=== PATIENT | female | born 2005 | race Caucasian/White ===

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

== ENCOUNTER 2024-01-30 09:05 | Emergency (ER) | payer OTHER, SELFPAY ==
[2024-01-30 09:12] VITALS: BP 132/67; PULSE 75; RESP 18; TEMP 36.7; O2SAT 100
[2024-01-30 09:21] VITALS: BP 132/67; PULSE 75; RESP 18; TEMP 36.7; O2SAT 100
--- NOTE | 2024-01-30 09:37 | ED.GENADULT ---
HPI - General Adult General Chief complaint: Ear Stated complaint: Right Ear Problem Source: patient Mode of arrival: ambulatory Limitations: no limitations History of Present Illness HPI narrative: Patient presents for evaluation of right-sided ear pain. She indicates she has a cerumen impaction on that side. She noticed muffled hearing yesterday. She tried to clean the right ear canal using a Q-tip. She indicates her mother told her that the wax was pushed in further. She denies any drainage from the right ear or tinnitus. She tried to clean her ear this morning with hydrogen peroxide but symptoms persist. Related Data Home Medications Medication Instructions Recorded Confirmed omeprazole 40 mg capsule,delayed 40 mg PO DAILY 04/23/22 01/30/24 release bupropion HCl 150 mg 24 hr tablet, 150 mg PO DAILY 01/30/24 01/30/24 extended release drospirenone 3 mg-ethinyl 1 tablet PO DAILY 01/30/24 01/30/24 estradiol 0.02 mg tablet ergocalciferol (vitamin D2) 1,250 1,250 mcg PO WEEKLY 01/30/24 01/30/24 mcg (50,000 unit) capsule Allergies Allergy/AdvReac Type Severity Reaction Status Date / Time No Known Allergies Allergy Verified 01/30/24 09:18 Review of Systems Review of Systems: CONSTITUTIONAL: Denies fever, chills, or sweats. EYES: Denies visual changes, redness, or discharge. ENT: Reports suspected cerumen impaction on right. Reports muffled hearing on the right side. Denies rhinorrhea, congestion, or sore throat CARDIOVASCULAR: Denies chest pain, palpitations, or edema. RESPIRATORY: Denies cough or dyspnea. GASTROINTESTINAL: Denies abdominal pain, nausea, vomiting, or diarrhea. GENITOURINARY: Denies dysuria or hematuria. SKIN: Denies rash or itching. MUSCULOSKELETAL: Denies back pain, joint pain, or myalgia. NEUROLOGIC: Denies headache, numbness, dizziness, or weakness. PSYCHIATRIC: Denies anxiety or depression. [facility] Past Medical History Medical History GERD (gastroesophageal reflux disease) No significant past medical history Obesity Seasonal affective disorder Surgical History Surgical History No significant past surgical history Family History Family History Mother Family history non-contributory Social History Social History Smoking status: Never smoker Alcohol intake: never Substance use: never Living arrangements: with family Occupation/Education: unemployed Gender identity (if verbalized by the patient): Female Exam Narrative: GENERAL: Well-appearing, well-nourished, and in no acute distress. HEAD: Normocephalic, atraumatic. EYES: PERRLA and EOMI. ENT: Nares clear, no rhinorrhea or epistaxis. Mucous membranes moist. Oropharynx without tonsillar hypertrophy exudate or other lesions. Left tympanic membrane is pearly pinto with bony landmarks visualized. Unable to visualize right-sided tympanic membrane due to cerumen impaction NECK: Supple. No adenopathy or masses. No carotid bruits or JVD CHEST: Clear to auscultation. No respiratory distress. No wheezes rales or rhonchi HEART: Regular rate and rhythm. No murmur heard. Normal peripheral pulses. ABDOMEN: Soft, nontender, nondistended, normal active bowel sounds. EXTREMITIES: Normal range of motion. No edema. SKIN: Warm, dry, no rash. NEURO: No focal deficits. Alert and oriented x3. PSYCH: Normal mood and affect. Course Course Emergency Course: This is a 18-year-old female who presented for evaluation of muffled hearing on the right. She had a cerumen impaction. I irrigated the right ear with water and hydrogen peroxide. Cerumen was removed. She has a small amount of redness in the right ear canal. Will discharge with ofloxacin ear drops. Tympanic membrane intac
== END 2024-01-30 09:38 | disposition home or self-care (01) ==
PROVIDERS: Emergency Provider Nurse Practitioner
DX: H61.21 Impacted cerumen, right ear (principal); K21.9 Gastro-esophageal reflux disease without esophagitis; E66.9 Obesity, unspecified; Z68.35 Body mass index [BMI] 35.0-35.9, adult
CPT/HCPCS: 69209; 99213; G0463

== ENCOUNTER 2025-04-19 00:16 | Day surgery (SDC) | payer OTHER, SELFPAY ==
[2025-04-11 10:06] VITALS: BMI 36.1
--- NOTE | 2025-04-11 10:14 | PC.NURSE ---
Report to the Outpatient Waiting Room, entrance under the green pavilion located off [facility], at time _0730_ on date _[id number]_. Planned Procedure Time: _0930_. Time changes happen often and if your time is changed the preop area will call you the afternoon before. - You and your visitor will be asked to self-screen and do not enter if you have any COVID symptoms. Please call surgeon if you need to reschedule. - A mask is optional within the hospital at this time. Patients may have clear liquids (water, carbonated beverages, clear teas, apple juice) until 3 hours prior to surgery with a maximum of 20 ounces. - No food from midnight until time of surgery and no smoking, or chewing tobacco (or any form of nicotine). No chewing gum, candy or mints. Take only the following medications with a SIP of water on the morning of surgery: __Albuterol inhaler if needed. DO NOT STOP ANY OF YOUR OTHER PRESCRIPTION MEDICATIONS PRIOR TO SURGERY EXCEPT THE FOLLOWING Hold all vitamins and supplements for 3 days per anesthesiologist. Medications to discontinue per physician Date to take last dose Please no make-up, nail [place], hairspray, perfume, deodorant, or body powder the day of surgery. No jewelry (including any body piercings) or valuables the day of surgery, leave them at home. Please take a shower or bath the night before, or the morning of, surgery with an antibacterial soap. Wear comfortable, loose fitting clothing. - Jewelry must be removed prior to entering the operating room. Rings and piercings that are not removed may be cut off. - The hospital will not accept responsibility for valuables. - Please leave all valuables, including medications, at home the day of surgery. If you are going home after surgery, a licensed refuse driver must drive you home. - NO public transportation without another adult if you receive anesthesia. - We recommend that an adult stay with you for 24 hours following discharge. - We also recommend that you do not drive, make important decision, drink alcoholic beverages, or take any drugs that were not prescribed by your health care provider for at least 24 hours after your discharge time. Follow any additional instructions given to you from your surgeon. Telephone instructions given to __Ryea___and asked if any additional questions and then verbalized understanding. Patient advised to call surgeon office or pre surgery nurse liaison [phone] if any additional questions.
[2025-04-19] VITALS (12 sets, daily range): BP systolic 103–133; BP diastolic 59–87; PULSE 67–84; RESP 12–20; TEMP 36.4–36.6; O2SAT 86–100; BMI 37.4
--- OUTSIDE RECORDS SUMMARY | 2025-04-19 00:19 | XMS_ITS | Clinical Summary ---
Author Organization [facility] Address [address] [place] [address] Phone Care Team Providers Care Vessel Operator Name Role Phone Emily, Karla MOSS CNP Primary Care Provider [phone] Allergies No known active allergies Medications ondansetron (Zofran) 4 MG Tablet Take 1 Tablet by mouth every 8 hours as needed for Nausea - 1st line. 12 Tablet 03/26/2021 Active Social History Tobacco Use Types Packs/Day Years Used Date Smoking Tobacco: Never Smokeless Tobacco: Never Alcohol Use Standard Drinks/Week Comments Never 0 (1 standard drink = 0.6 oz pur e alcohol) Comments No Sex and Gender Information Value Date Recorded Sex Assigned at Not on file Legal Sex Female 10:57 PM CDT Gender Identity Not on file Sexual Orientation Not on file Last Filed Vital Signs Vital Sign Reading Time Taken Comments Blood Pressure 136/76 03/26/2021 8:35 PM CDT Pulse 100 03/26/2021 8:35 PM CDT Temperature 38.3 C (100.9 F) 03/26/2021 8:26 PM CDT Respiratory Rate 20 03/26/2021 8:16 PM CDT Oxygen Saturation 98% 03/26/2021 8:35 PM CDT Inhaled Oxygen Concentration - - Weight 86.2 kg (190 lb) 03/26/2021 7:00 PM CDT Height 157.5 cm (5' 2 ) 03/26/2021 7:00 PM CDT Body Mass Index 34.75 03/26/2021 7:00 PM CDT Plan of Treatment Health Maintenance Due Date Last Done Comments Hepatitis C Virus (HCV) Screening 2003 Meningococcal B Immunization (2 of 2 - Bexsero SCDM 2-dose series) 12/29/2021 06/28/2021 Influenza Immunization (#1) 07/31/202408/30, 09/12/2015, 12/02/2010, Additional history exists SARS-COV-2 Immunization ( season) 2024 Respiratory Syncytial Virus (RSV) Immunization (Adult) (1 - 1-dose 75+ series) 2078 Hepatitis B Immunization Completed 004, 2003, 2003, Additional history exists Pneumococcal Immunization Combined Aged Out 03/31/2005, 01/29/2004, 2003, Additional history exists No longer eligible based on patient's age to complete this topic Hepatitis A Immunization Discontinued 05/21/2006, 06/2005 Measles Mumps Rubella (MMR) Immunization Discontinued 06/22/2008, 06/27/2004 Polio (IPV) Immunization Discontinued 008, 01/29/2004, 2003, Additional history exists Varicella Immunization Discontinued 06/22/2008, 2003 DTaP/Tdap/Td Immunization Discontinued 2014, 06/22/2008, 03/31/2005, Additional history exists TdaP Immunization Completed 06/28/2015 Human Papillomavirus (HPV) Immunization Completed 06/16/2017, 01/13/2017, 06/28/2015 Meningococcal Immunization (ACWY) Completed 06/28/2021, 06/28/2015 Rotavirus Immunization Aged Out No lo nger eligible based on patient's age to complete this topic Insurance [employer]ID [employer] Care Teams Vessel Operator Relationship Specialty Start Date End Date Karla Diaz APRN, CHRISTOPHER [address] [place] [address] PCP - General Family Medicine 06/19/22
--- OUTSIDE RECORDS SUMMARY | 2025-04-19 00:19 | XMS_ITS | Data Portability ---
Author Organization [facility] [place] Address [address] [place] [address] Care Team Providers Care Trailer Park Manager Name Role Phone GRISELDA GONZALEZ Primary Care Provider Assessment No assessment recorded. Plan of Treatment Reminders Order Date Submit Date Provider Last Modified By Organization Details Last Modified Time Details Appointments SURG Diagnosti c Lap 2024 09:30A Pierre REYNOSO MD Not available Not available Not available Lab 17-hydrox yprogestDANIAL william, serum 2024 025 [facility] (Lab), [address] [place], [address], 03/21/2025 17:49:34 dhea-sulf ate, serum 2024 025 [facility] (Lab), [address] [place], [address], 03/21/2025 17:49:32 estradiol , serum 2024 025 [facility] (Lab), [address] [place], [address], 03/21/2025 17:49:31 FSH (follicle -stimulat ing hormone), serum 2024 025 [facility] (Lab), [address] [facility], [place], [address], 03/21/2025 17:49:33 HbA1c (hemoglob in A1c), blood 2024 025 [facility] (Lab), [address] , [place], [address], 03/21/2025 17:49:33 lh (luteiniz ing hormone), serum 2024 025 [facility] (Lab), [address] , [place], [address], 03/21/2025 17:49:33 progester one, serum 2024 025 [facility] (Lab), [address] , [place], [address], 03/21/2025 17:49:31 prolactin , serum 2024 025 [facility] (Lab), [address], [place], [address], 03/21/2025 17:49:32 shbg (sex hormone-b inding globulin) , serum 2024 025 [facility] (Lab), [address], [place], [address], 03/21/2025 17:49:32 TSH, serum or plasma 2024 025 [facility] (Lab), [address], [place], [address], 03/21/2025 17:49:31 testoster one free/test osterone total, ratio, serum 2024 025 [facility] (Lab), [address], [place], [address], 03/21/2025 17:49:33 urinalysi s, dipstick 2024 025 [email or web address] [place], [address], [address], [place], [address], 02/13/2025 15:12:28 test, urine 2024 025 [place], [address], [place], [address], 02/13/2025 15:13:59 Referral None recorded. Procedures None recorded. Surgeries laparosco py, diagnosti c (SURG) 2024 025 [id number] [facility] [place], [address], [place], [address], 03/14/2025 14:08:16 Imaging US, pelvis 2024 025 [email or web address] [place], [address], [place], [address], 02/20/2025 22:01:02 US, transvagi nal 2024 025 [email or web address] [place], [address], [place], [address], 02/20/2025 22:01:02 US, pelvis, complete 2024 025 [email or web address] [place], [address], [place], [address], 03/26/2025 11:40:37 Medication Orders None recorded. Patient TargetsNo targets recorded. Patient InstructionsNo instructions recorded. Reason for Referral None Reported. Results Created Date Observation Date Name Description Value Unit Range Abnormal Flag Note LastModifiedBy Organization Detail LastModifiedTime 02/14/2002/13/2025 [facility], HOMER bacterial vaginosis (bv), tma Negati ve negati ve Not Available [facility] (Lab) [address], [place], [address], 02/14/2025 14:58:06 02/14/2002/13/2025 WOMEN 'S HEALT H SWAB PLUS, HOMER aishwarya species, tma Negati ve negati ve Not Available [facility] (Lab) [address] [facility], [place], [address], 02/14/2025 14:58:06 02/14/20 25 02/13/2025 WOMEN 'S HEALT H SWAB PLUS, HOMER aishwarya glabrata, tma Negati ve negati ve Not Available [facility] (Lab) [address] [place], [address], 02/14/2025 14:58:06 02/14/20 25 02/13/2025 [facility]OMEN 'S HEALT H SWAB PLUS, HOMER trichomonas vaginalis, tma Negati ve negati ve Not Available [facility] (Lab) [address] [facility], [place], [address], 02/14/2025 14:58:06 02/14/20 25 02/13/2025 [facility] chlamydia trachomatis, PCR Negati ve negati ve Not Available [facility] (Lab) [address] [facility], [place], [address], 02/14/2025 14:58:06 02/14/20 25 02/13/2025 [facility] neisseria gonorrhoeae, PCR Negati ve negati ve Bacte rial vagin osis detec ts the follo wing bacte aniket assoc iated with bacte rial vagin osis (BV): Lacto bacil mike (L. gasse ri, L. crisp atus and L. jense ridge), Gardn erell a vagin nandini, and Atopo bium vagin ae. A singl e quali tativ e resul t is repor rosario base on instr ument softw are to deter mine BV posit alana or negat alana statu s. The R[facility]i [facility] speci es group tests for C. albic ans, C. tropi calis , C. parap ailyn is, C. dubli niens is. Testi ng is perfo rmed using the Trans cript ion Media rosario Ampli ficat ion metho d. Tests for Roxi da glabr mehran, Trich omona s vagin nandini, Chlam ydia trach omati s, and Neiss eria gonor tan e are also inclu ded in this panel . Not Available [facility] (Lab) [address] [facility], [place], [address], 02/14/2025 14:58:06 02/14/20 25 02/13/2025 CULTU RE: URINE result report SEE RESULT S BELOW Test: Cultu re: Urine Speci men Sourc e: Urine - Clean Catch Speci men Type: Urine Speci men Date: 2024 1458 Resul t Date: 2024 2103 Resul t Statu s: Final resul t Abnor mal: No Resul ting Lab: [facility] [address] [facility] [address] Tel: CULTU RE ----- ----- ----- --- No growt h in 1 day (dete ction level of 10,00 0 colon ies / ml.) Not Available [facility] (Lab) [address] [facility], [place], [address], 02/14/2025 22:07:29 02/14/20 25 02/13/2025 pregn tonia test, urine HCG negati ve Not Available [place] [address], [place], [address], 02/13/2025 15:12:57 02/14/20 25 02/13/2025 urina lysis , dipst ick Leukocytes neg Not Available [facility] [address], [place], [address], 02/13/2025 15:11:17 02/14/20 25 02/13/2025 urina lysis , dipst ick Nitrite neg Not Available [place] [address], [place], [address], 02/13/2025 15:11:17 02/14/20 25 02/13/2025 urina lysis , dipst ick Urobilinogen neg Not Available [facility] [address], [place], [address], 02/13/2025 15:11:17 02/14/20 25 02/13/2025 urina lysis , dipst ick Protein pos Not Available [place] [address], [place], [address], 02/13/2025 15:11:17 02/14/20 25 02/13/2025 urina lysis , dipst ick pH 5 Not Available [place] [address], [place], [address], 02/13/2025 15:11:17 02/14/20 25 02/13/2025 urina lysis , dipst ick Specific [place] 1.015 Not Available [facility] [address], [place], [address], 02/13/2025 15:11:17 02/14/20 25 02/13/2025 urina lysis , dipst ick Bilirubin neg Not Available [facility] [address], [place], [address], 02/13/2025 15:11:17 02/14/20 25 02/13/2025 urina lysis , dipst ick Glucose neg Not Available [place] [address], [place], [address], 02/13/2025 15:11:17 02/14/20 25 02/13/2025 urina lysis , dipst ick Appearance clear Not Available [facility] [address], [place], [address], 02/13/2025 15:11:17 02/14/20 25 02/13/2025 urina lysis , dipst ick Color yellow Not Available [place] [address], [place], [address], 02/13/2025 15:11:17 03/06/20 25 03/06/2025 TSH, REFLE X FREE T4 TSH 0.87 uIU/m L 0.30-5 .33 Not Available [facility] (Lab) [address] [place], [address], 03/21/2025 17:49:31 03/06/20 25 03/06/2025 ESTRA DIOL estradiol 340.0 pg/mL This assay was perfo rmed using [employer] ratio n reage nts and test kits. Value s obtai james with other assay metho ds or kits canno t be used inter [facility] . Femal e Estra diol Range s: Folli cular phase 12.4- 233 pg/mL Ovula tion phase 41.0- 398 pg/mL Lutea l phase 22.3- 341 pg/mL Postm enopa usal <5-13 8 pg/mL Healt hy Pregn ant Women 1st Trime ster 154-3 243 pg/mL 2nd Trime ster 1561- 04900 pg/mL 3rd Trime ster 8525- >3000 0 pg/mL Not Available [facility] (Lab) [address] [place], [address], 03/21/2025 17:49:31 03/06/20 25 03/06/2025 PROGE STERO NE progesterone 0.58 NG/mL This assay was perfo rmed using [employer] ratio n reage nts and test kits. Value s obtai james with other assay metho ds or kits canno t be used inter [facility] eay . Femal e Proge stero ne Range s: Folli cular phase 0.06- 0.89 ng/mL Ovula tion phase 0.12- 12.00 ng/mL Lutea l phase 1.83- 23.90 ng/mL Postm enopa usal <0.05 -0.13 ng/mL Healt hy Pregn ant Women 1st Trime ster 11.0- 44.30 2nd Trime ster 25.40 -83.3 0 3rd Trime ster 58.70 -214. 00 Not Available [facility] (Lab) [address] [facility], [place], [address], 03/21/2025 17:49:31 03/06/20 25 03/06/2025 PROLA CTIN prolactin, total 14.90 NG/mL 4.79-2 3.30 This assay was perfo rmed using [employer] ratio n reage nts and test kits. Value s obtai james with other assay metho ds or kits canno t be used inter [facility] . Not Available [facility] (Lab) [address] [facility], [place], [address], 03/21/2025 17:49:32 03/06/20 25 03/06/2025 HUMAN SEX HORMO NE ROCKY NG GLOBU GEORGE sex hormone binding globulin 63.1 nmole s/L 18.2-1 35.5 Not Available [facility] (Lab) [address] [facility], [place], [address], 03/21/2025 17:49:32 03/06/20 25 03/06/2025 DHEA SULFA TE DHEA-sulfate 160 ug/dL Femal e Range s Age(y ) Range (ug/d L) 10-15 34-28 0 15-20 65-36 8 20-25 148-4 07 25-35 99-34 0 35-45 61-33 7 45-55 35-25 6 55-65 19-20 5 65-75 9-246 > 75 12-15 4 Not Available [facility] (Lab) [address] [facility], [place], [address], 03/21/2025 17:49:32 03/06/20 25 03/06/2025 LH (LUTE NIZIN G HORMO NE) LH 38.9 mIU/m L This assay was perfo rmed using [employer] ratio n reage nts and test kits. Value s obtai james with other assay metho ds or kits canno t be used inter [facility] e[facility] . Femal es Mid-F ollic ular: 2.4-1 2.6 mIU/m L Mid-C ycle: 14.0- 95.6 mIU/m L Mid-L uteal : 1.0-1 1.4 mIU/m L Postm enopa use: 7.7-5 8.5 mIU/m L Not Available [facility] (Lab) [address], [place], [address], 03/21/2025 17:49:33 03/06/20 25 03/06/2025 FSH FSH 11.6 mIU/m L This assay was perfo rmed using [employer] ratio n reage nts and test kits. Value s obtai james with other assay metho ds or kits canno t be used inter [facility] eably . Femal es Folli cular : 3.5-1 2.5 mIU/m L Ovula tion: 4.7-2 1.5 mIU/m L Lutea l: 1.7-7 .7 mIU/m L Postm enopa use: 25.8- 134.8 mIU/m L Not Available [facility] (Lab) [address] [facility], [place], [address], 03/21/2025 17:49:33 03/06/20 25 03/06/2025 HEMOG LOBIN A1C hemoglobin A1C 5.0 % 4.0-5. 6 The Ameri can Diabe chaz Assoc iatio n recom mends that a prima ry goal of thera py mahesh guevara be a HBA1C of < 7% and that physi cians shoul d reeva luate the treat ment regim en in patie nts with HBA1C value s consi stent ly > 8%. <5.7% Yolande l 5.7 - 6.4% Incre ased risk for diabe chaz >=6.5 % Diagn ostic of diabe chaz <7.0% Goal of thera py >8.0% Actio n sugge sted Not Available [facility] (Lab) [address], [place], [address], 03/21/2025 17:49:33 03/06/20 25 03/06/2025 TESTO STERO NE, FREE( DIALY SIS) AND TOTAL (LC/M S/MS) testosterone , total 62 NG/dL 2-45 high For addit ional sameer pillai e refer to http: //christy moore.que stdia gnost ics.c om/fa q/ Total Testo stero neLCM SMSFA Q165 (This link is being provi ded for infor matjosseline nal/ educa kimi l purpo ses only. ) This test was devel oped and its fifi tical perfo rmanc e lucho cteri stics have been deter mined by [employer] ostic s [place]enny [place], [place]. It has not been clear ed or appro kenzie by the U.S. Food and Drug Admin istra tion. This assay has been valid ated pursu ant to the CLIA regul ation s and is used for clini verna purpo ses. Not Available [facility] (Lab) [address], [place], [address], 03/21/2025 17:49:33 03/06/2003/06/2025 TESTO STERO NE, FREE( DIALY SIS) AND TOTAL (LC/M S/MS) testosterone , free 5.5 pg/mL 0.1-6. 4 This test was devel oped and its fifi tical perfo rmanc e lucho cteri stics have been deter mined by [employer] [facility]stic [facility] [place] [place]. It has not been clear ed or appro kenzie by the U.S. Food and Drug Admin istra tion. This assay has been valid ated pursu ant to the CLIA regul ation s and is used for clini verna purpo ses. Perfo rming Organ izati on [facility]inny moore: Site ID: [id number] Name: [employer] padmini s Renny ls Insti kelsie Addre ss: [id number] [facility] [employer] [place], [place] Direc tor: Isabelle Serrano MD PhD Not Available [facility] (Lab) [address], [place], [address], 03/21/2025 17:49:33 03/06/20 25 03/06/2025 17-OH PROGE STERO NE 17-hydroxypr ogesterone, lc/MS/MS 212 NG/dL Adult Femal e Refer ence Range s for 17-Hy droxy proge stero ne: Pre-M enopa usal Mid Folli cular : 23-10 2 ng/dL Pre-M enopa usal Surge : 67-34 9 ng/dL Pre-M enopa usal Mid Lutea l: 139-4 31 ng/dL Postm enopa usal Phase : < or = 45 ng/dL Pregn tonia: First Trime ster: 78-45 7 ng/dL Secon d Trime ster: 90-35 7 ng/dL Third Trime ster: 144-5 78 ng/dL This test was devel oped and its fifi tical perfo rmanc e lucho cteri stics have been deter mined by [employer] ostic s. It has not been clear ed or appro kenzie by the FDA. This assay has been valid ated pursu ant to the CLIA regul ation s and is used for clini verna purpo ses. Perfo rming Organ izati on Infor matio n: Site ID: [id number] Name: [employer] ostrod s/Hermilo herring [facility] , Addre ss: [id number] [facility] [place] [address] Direc tor: Jocelyne pollack MD,Ph D,THOMAS Not Available [facility] (Lab) [address], [place], [address], 03/21/2025 17:49:34 02/21/20 25 02/20/2025 US, pelvi s No observ ation record ed. [email or web address] [place] [address], [place], [address], 02/20/2025 16:34:20 02/21/20 25 02/20/2025 US, trans vagin al No observ ation record ed. [email or web address] [place] [address], [place], [address], 02/20/2025 16:34:32 02/21/20 25 02/20/2025 US, pelvi s No observ ation record ed. LAYLA Ericka [address], [place], [address], 02/21/2025 10:33:32 Result Notes None recorded. Procedures Surgical History Date Name Laterality Status Provider Name and Address Organization Details Recorded Time 4 Date of Last Pap Smear completed [facility] 02/13/2025 14:34:34 3 section completed [facility] 02/13/2025 14:43:44 Imaging Results Imaging Date Name Status LastModified by Organization Details LastModified Time 02/20/2025 US, pelvis completed [email or web address] [place] [address], [place], [address], 02/20/2025 16:34:20 02/20/2025 US, transvaginal completed [email or web address] [address], [place], [address], 02/20/2025 16:34:32 02/20/2025 US, pelvis completed LAYLA Ericka [address], [place], [address], 02/21/2025 10:33:32 Procedure Notes None recorded. Medical Equipment None Reported. Allergies No known drug allergies Medications Name Sig Start Date Stop Date Status Note LastModified by Organization Details LastModified Time albuterol sulfate HFA 90 mcg/actuati on aerosol inhaler INHALE 2 PUFFS BY MOUTH EVERY 4 HOURS NEEDED FOR WHEEZING active Not Available Not Available No t Available drospirenon e 3 mg-ethinyl estradiol 0.02 mg tablet TAKE 1 TABLET BY MOUTH EVERY DAY 03/06 completed Not Available Not Available Not Available Vitals Date Recorded Body height Body mass index (BMI) Body weight Systolic blood pressure Diastolic blood pressure Provider Name and Address Organization Details Last Updated DateTime 02/13/2025 157.48 cm 35.5 kg/m2 02366.92 g 101 mm[Hg] 67 mm[Hg] JHONATAN Duarte [facility] 14:39:34 Date Recorded Body height Body mass index (BMI) Body weight Systolic blood pressure Diastolic blood pressure Provider Name and Address Organization Details Last Updated DateTime 03/06/2025 157.48 cm 36.4 kg/m2 21112.88 g 138 mm[Hg] 79 mm[Hg] Mary Grace Anthony [facility] 17:20:10 Social History Question Answer Notes LastModified by Organizat ion Details LastModified Time Tobacco Smoking Status Never Smoker JHONATAN Duarte [facility] 02/13/2025 14:30:48 Do You Have An Advance Directive? No [email or web address] Information not available 02/13/2025 What Is Your Level Of Caffeine Consumption? None [email or web address] Information not available 02/13/2025 In The 14 Days Before Symptom Onset, Have You Had Close Contact With A Laboratory-confi rmed COVID-19 While That Case Was Ill? No [email or web address] Information not available 02/13/2025 Have You Been To An Area Known To Be High Risk For COVID-19? No Information not available 02/13/2025 Are You Deaf Or Do You Have Serious Difficulty Hearing? No Information not available 02/13/2025 What Type Of Diet Are You Following? REGULAR [email or web address] Information not available 02/13/2025 What Is The Highest Grade Or Level Of School You Have Completed Or The Highest Degree You Have Received? [id number] [email or web address] Information not available 02/13/2025 Are There Any Guns Present In Your Home? No Information not available 02/13/2025 Are You Sexually Active? Yes [email or web address] Information not available 02/13/2025 Do You Have Smoke And Carbon Monoxide Detectors In Your Home? Yes [email or web address] Information not available 02/13/2025 Do You Use Sunscreen Routinely? Yes [email or web address] Information not available 02/13/2025 Has Tobacco Cessation Counseling Been Provided? No [email or web address] Information not available 02/13/2025 Do You Have Difficulty Walking Or Climbing Stairs? No Information not available 02/13/2025 Sex: Unknown Functional Status Question Answer Note LastModified by Organizat ion Details LastModified Time Do you or have you ever used any other forms of tobacco or nicotine? No [email or web address] Information not available 02/13/2025 What is your level of alcohol consumption? None [email or web address] Information not available 02/13/2025 Are you able to walk? [email or web address] Information not available 02/13/2025 Do you have difficulty dressing or bathing? Yes [email or web address] Information not available 02/13/2025 What is your exercise level? Occasional Information not available 02/13/2025 Mental Status Question Answer Note LastModified by Organization D etails LastModified Time Do you feel stressed (tense, restless, nervous, or anxious, or unable to sleep at night)? [id number] [email or web address] Information not available 02/13/2025 Family History Relationship Description Onset Age of this Age Resolved Age Notes LastModified by Organization Details LastModified Time Mother Anemia [email or web address] Not available 02/13/2025 14:44:49 Mother Hypercholest erolemia [email or web address] Not available 2024 14:45:07 Mother Hypertensive disorder [email or web address] Not available 2024 14:45:50 Mother Cyst of ovary Not available 2024 16:27:47 Mother Thyroiditis [email or web address] Not availa ble 03/06/2025 16:27:47 Mother Polycystic ovary [email or web address] Not available 2024 16:27:47 Maternal Grandfather Hypercholest erolemia [email or web address] Not available 2024 14:45:22 Maternal Grandfather Hypertensive disorder [email or web address] Not available 2024 14:45:55 Maternal Grandfather Diabetes mellitus [email or web address] Not available 2024 14:48:14 Maternal Grandmother Hypercholest erolemia Not available 2024 14:45:26 Maternal Grandmother Hypertensive disorder [email or web address] Not available 2024 14:45:59 Maternal Grandmother Cyst of ovary Not available 2024 16:27:47 Maternal Grandmother Thyroiditis [email or web address] Not available 0 03/06/2025 16:27:47 Maternal Grandmother Heart disease [email or web address] Not available 2024 14:48:03 Maternal Grandmother Diabetes mellitus [email or web address] Not available 2024 14:48:20 Maternal Grandmother Polycystic ovary [email or web address] Not available 2024 16:27:47 Brother Asthma [email or web address] Not available 02/13/2025 14:49:41 Maternal Aunt Cyst of ovary [email or web address] Not available 2024 16:27:47 Maternal Aunt Polycystic ovary [email or web address] Not available 2024 16:27:47 Maternal Aunt Thyroiditis [email or web address] Not available 03/06/2025 16:27:47 Medical History Condition Response Allergies (Food, seasonal, environmental ) N Other N Breast Cancer N Drug/Latex Allergies/Reactions N Blood Transfusion N Lung Disease N Dermatologic Disorders N Defects or Inherited Disease N Breast Problem N Gestational Diabetes N Hematologic disorders N Anesthesia Complications N History of STI N Deep Vein Thrombosis N Polycystic ovary syndrome N Anxiety Disorder N Autoimmune disease N Arthritis N Infertility N Polyps N Acid Reflux (GERD) N History of abnormal pap N Cancer N Stroke N Varicosities N Neurologic/Epilepsy N Endometriosis N High Cholesterol N Headaches N Fibromyalgia N Kidney Disease N Heart Problems N Kidney or Bladder Problems N Thyroid Problems N GI Problems N Eating Disorder N Anemia N Art (IVF or FET) N Psychiatric Illness N Ovarian Cancer N Diabetes N Pulmonary (TB, Asthma) N Hepatitis/Liver Disease N No Past Medical History N Eczema N Urinary Tract Infection N Abuse/Domestic Violence N Asthma N Trauma/Violence N Depression/ depression N Heart Disease N Pre-Eclampsia N Hypertension N Osteoporosis N Thrombophilias N Gynecological History Statement/Question Response Date of Last Mammogram Flow Moderate Date of LMP 02/15/2025 On BCP's at Conception? N Was last menstrual period normal Y STIs/STDs N HPV Vaccine Y Duration of Flow (days) 4 Current Control Method None Age at First Child 16 Are cycles usually normal Y Date of Last Colonoscopy Frequency of Cycle (Q days) 28 Sexually Active? Y Menses Monthly Y Date of DEXA bone scan Age of first menstrual cycle 10 Date of Last Pap Smear 09/05/2024 Sexual Problems? LMP Definite Obstetrics History GPAL:G 1 P 1 0 0 1 Type Value Full Term 1 Living 1 Total 1 Past Encounters Encounter ID Performer Location Encounter Start Date Encounter Closed Date Diagnosis/Indication Diagnosis SNOMED-CT Code Diagnosis ICD10 Code Diagnosis Note [id number] MAYNOR Carroll [place] [address] [address] 02/13/2025 14:07:12 02/13/2025 16:19:48 Urinary symptoms 922025186 R39.9 Screening procedure 2012 5006 Z13.9 Pain in pelvis 54854642 R10.2 This patient is a 19 -year-old female with pelvic pain. We have agreed to complete the evaluation with pelvic ultrasound . The patient will return after the pelvic ultrasound to discuss those findings and to develop a treatment plan. A comprehens alana history and physical exam was performed today. We spent over 25 minutes face-to-fa ce. The patient was given precaution s. She will contact clinic if pelvic pain increases in frequency or intensity. Also notify clinic of any new symptoms associated with pelvic pain. She does not appear to have an acute pelvic infection today, but was asked to contact us Immediatel y with nausea, vomiting, fever, chills. Detailed health hx obtained and reviewed todaydiscu ssed chronic pelvic pain and possible endometrio sis based on patient hx, recommende d updated pelvic u/s and MD u/s f/uvaginit is panel sentgc/ct/ trich testing sent per pt requestUA/ cx doneUPT (-) Vaginal odor [id number] N 89.8 Venereal d isease screening [id number] Z11.3 [id number] Deshawn Reynoso MD [place] [address] [address] [address] 02/20/2025 15:54:52 02/20/2025 16:47:14 Pain in pelvis [id number] R10.2 [id number] Deshawn Reynoso MD [place] [address] [address] 03/06/2025 16:27:43 03/07/2025 15:15:43 Polycystic ovary syndrome [id number] E28.2 Pain in pelvis [id number] R10.2 This patient is a 19-year-ol d female with longstandi ng pelvic pain. She has failed medical treatments and would like a diagnostic laparoscop y. She would like more informatio n and possibly treatment with the surgery. The patient understand s the procedure. The procedure was described to the patient in great detail. the patient also understand s the risks. The risks were also explained in detail. She understand s that injuries May occur during surgery. She understand s these injuries can result in hospitaliz ation, more surgery, and severe illness. She understand s there is risk of hemorrhage and infection. we talked about polycystic ovarian syndrome in detail. Talked about the normal menstrual cycle. We talked about the hormonal irregulari ty at the center of polycystic ovarian syndrome. We talked about her ultrasound results. I showed her images from her ultrasound results. She has polycystic appearing ovaries. We are going to withhold treatment at this time. She is considerin g . We spent over 30 minutes on this patient's care in total, discussed to complex topics in detail. Health Concerns Section Related Observation LastModified by Organization Detai ls LastModified Time None Recorded Concern Status LastModified by Organization Details LastModified Time None Recorded Advance Directives Directive N: Payers Encounter Date Sequence Insurance Name Policy Number Policy Shaver Covered Member ID Shaver Member ID Guarantor Name 02/13/2025 1 [employer] (MEDICAID REPLACEMENT - HMO) Ryea Greeling [id number] Ryea Greeling 02/20/2025 1 [employer] (MEDICAID REPLACEMENT - HMO) Ryea Greeling [id number] Ryea Greeling 03/06/2025 1 [employer] (MEDICAID REPLACEMENT - HMO) Ryea Greeling [id number] Ryea Greeling Notes Date Note Type Note Provider Name and Address Organization Details Recorded Time 02/13/2025 text/html 19yo (h/ o primary c/s 01/2023)presents for evaluation of pelvic painsymptoms present for the past 2-3 yrspain is described as lower pelvic pain, ache/cramping sensation, feels daily. Worse on her periods.SA with steady male partners, condoms/withdrawal for [facility] is painfuloften has constipationat times has discomfort with urinationvaginal odor present on and off Pap done 10 [id number]|2025-04-19 11:30:00|2025-04-19 11:30:00|P.OP_ITS|[facility]EN|Health Information Management|[id number]|"Procedure Note - Detailed Date of Procedure 04/19/25 Pre-op Diagnosis pelvic pain Post-op Diagnosis Same (Endometriosis, adhesion) Procedure Performed Diagnostic laparoscopy, adhesiolysis-30 minutes, resection of endometriosis Surgeon Deshawn Reynoso MD Anesthesia General Indications Pelvic pain Findings Inflammation/endometriosis in the bilateral pelvic sidewalls, vascularity. Adhesions between the uterus and the anterior pelvis. Description of Procedure The patient was taken to the operating room. She was prepped and draped in the dorsal lithotomy position after induction general anesthesia. A 5 mm incision was made with a scalpel on the abdominal skin in the left upper quadrant of the abdomen. A 5 mm trocar was inserted into the intra-abdominal cavity under direct visualization the scope. In the same fashion a 5 mm left lower quadrant trocar was inserted and a 5 mm infraumbilical trocar was inserted. 30 minutes of adhesiolysis was performed using sharp and blunt dissection and cautery. This was performed between the uterus and the anterior pelvis. Resection of endometriosis was performed. Bilaterally the pelvic sidewall peritoneum was removed. The ureters were dissected intact. To perform resection of an endometriosis the ovaries were suspended using a [place] needle/suture Passer to place a suture through the abdominal wall through the ovary to suspended towards the anterior abdominal wall. DAGOBERTO manipulator was also placed. This was done using a speculum and tenaculum. The pelvis was irrigated. The pneumoperitoneum was reduced. The trocars were removed. Skin was closed with subcuticular 4 micro. The patient's incisions were covered with Dermabond. She was taken recovery room in stable condition. Sponge lap and needle counts were correct x2. Complications No immediate complications Condition Stable Disposition Same day "
--- OUTSIDE RECORDS SUMMARY | 2025-04-19 00:19 | XMS_ITS | Clinical Summary ---
Author Organization [address] Address [address] [place] [id number] Care Team Providers Care Supervisor Travel Information Center Name Role Phone Vinicio Lowery MD Unavailable [phone] Juan Baugh MD Primary Care Provider [phone] Allergies No known active allergies Medications albuterol HFA (PROVENTIL HFA,VENTOLIN HFA,PROAIR HFA) 90 mcg/actuation inhaler Inhale 2 puffs every 4 (four) hours as needed for wheezing 1 each 2 4 Active ondansetron ODT (ZOFRAN-ODT) 4 mg disintegrating tabletIndications:N ausea and vomiting, unspecified vomiting type Take 1 tablet (4 mg total) by mouth every 8 (eight) hours as needed for nausea or vomiting 20 tablet 5 Active dulaglutide (TRULICITY) 0.75 mg/0.5 mL pen injectorIndications :PCOS (polycystic ovarian syndrome) Inject 0.5 mL (0.75 mg total) under the skin every 7 days 6 mL 5 06/05/20 25 Active Active Problems Problem Noted Date Diagnosed Date Mixed hyperlipidemia 01/03/2025 Assessment & Plan (01/03/2025 10:26 AM COMMERCIAL FINANCE ANALYST): Lab Results Component Value Date CHOL 134 01/01/2024 Lab Results Component Value Date HDL 37 (L) 01/01/2024 Lab Results Component Value Date LDLCALC 66 01/01/2024 Lab Results Component Value Date TRIG 153 (H) 01/01/2024 No results found for: POCCHDLR No results found for: POCNONHDL No results found for: POCCHLPL Class 1 obesity due to exces s calories without serious comorbidity with body mass index (BMI) of 33.0 to 33.9 in adult 12/30/2023 Assessment & Plan (01/03/2025 10:13 AM COMMERCIAL FINANCE ANALYST): Wt Readings from Last 3 Encounters: 01/03/25 84.2 kg (185 lb 11.2 oz) 12/22/24 86.2 kg (190 lb) 10/19/24 86.1 kg (189 lb 14.4 oz) BMI Readings from Last 3 Encounters: 01/03/25 33.96 kg/m 12/22/24 34.75 kg/m 10/19/24 34.72 kg/m Not at goal of bmi <30 Continue diet and exercise BMI Follow-up includes: nutrition counseling and exercise counseling. No improvement with phentermine and topamax Obesity is causing significant morbidity, including issues fatigue, causing worsening depression, worsening back pain, as well as right sided hip pain which she didn't have this previous to gaining weight Assessment & Plan (10/19/2024 2:49 PM COMMERCIAL FINANCE ANALYST): Wt Readings from Last 3 Encounters: 10/19/24 86.1 kg (189 lb 14.4 oz) 05/18/24 82.6 kg (182 lb) 02/11/24 92.8 kg (204 lb 9.6 oz) BMI Readings from Last 3 Encounters: 10/19/24 34.72 kg/m 05/18/24 33.28 kg/m 02/11/24 37.41 kg/m Not at goal of bmi <30 Continue diet and exercise BMI Follow-up includes: nutrition counseling and exercise counseling. No improvement with phentermine and topamax Obesity is causing significant morbidity, including issues fatigue, causing worsening depression, worsening back pain, as well as right sided hip pain which she didn't have this previous to gaining weight Assessment & Plan (05/18/2024 7:48 AM CDT): Wt Readings from Last 3 Encounters: 05/18/24 82.6 kg (182 lb) 02/11/24 92.8 kg (204 lb 9.6 oz) 12/30/23 95 kg (209 lb 8 oz) BMI Readings from Last 3 Encounters: 05/18/24 33.28 kg/m 02/11/24 37.41 kg/m 12/30/23 38.31 kg/m Not at goal of bmi <30 Continue diet and exercise BMI Follow-up includes: nutrition counseling and exercise counseling. Not at goal at this time C/w phetnermien 30 mg and topimarate 25 mg bid Assessment & Plan (02/11/2024 11:50 AM CDT): Wt Readings from Last 3 Encounters: 02/11/24 92.8 kg (204 lb 9.6 oz) 12/30/23 95 kg (209 lb 8 oz) 03/08/23 88.5 kg (195 lb) (97%, Z= 1.87)* * Growth percentiles are based on CDC (Girls, 2-20 Years) data. BMI Readings from Last 3 Encounters: 02/11/24 37.41 kg/m 12/30/23 38.31 kg/m 03/08/23 35.67 kg/m (97%, Z= 1.89)* * Growth percentiles are based on CDC (Girls, 2-20 Years) data. Not at goal of bmi <30 Continue diet and exercise BMI Follow-up includes: nutrition counseling and exercise counseling. Not at goal at this time Some improvement Start phetnermien 30 mg every day x 3 months with topimarate 25 mg bid Assessment & Plan (12/30/2023 11:26 AM COMMERCIAL FINANCE ANALYST): Wt Readings from Last 3 Encounters: 12/30/23 95 kg (209 lb 8 oz) 03/08/23 88.5 kg (195 lb) (97%, Z= 1.87)* 02/18/23 103.4 kg (228 lb) (99%, Z= 2.30)* * Growth percentiles are based on CDC (Girls, 2-20 Years) data. BMI Readings from Last 3 Encounters: 12/30/23 38.31 kg/m 03/08/23 35.67 kg/m (97%, Z= 1.89)* 02/18/23 41.70 kg/m (>99%, Z= 2.36)* * Growth percentiles are based on CDC (Girls, 2-20 Years) data. Not at goal of bmi <30 Continue diet and exercise BMI Follow-up includes: nutrition counseling and exercise counseling. Annual physical exam 12/30/2023 Assessment & Plan (01/03/2025 10:27 AM COMMERCIAL FINANCE ANALYST): Discussed lifestyle modifications, diet and exercise. Routine blood work ordered/reviewed today. Yearly vision and dental examinations. Assessment & Plan (12/30/2023 11:35 AM COMMERCIAL FINANCE ANALYST): Discussed lifestyle modifications, diet and exercise. Routine blood work ordered/reviewed today. Yearly vision and dental examinations. Anxiety 12/30/2023 Assessment & Plan (10/19/2024 2:51 PM COMMERCIAL FINANCE ANALYST): Has been worsening due to her weight gain Assessment & Plan (05/18/2024 7:48 AM CDT): Significant improvemen Continue wellbutrin 150 mg xl Assessment & Plan (02/11/2024 11:45 AM CDT): Significant improvement since starting wellbutrin Continue wellbutrin 150 mg xl Assessment & Plan (12/30/2023 11:34 AM COMMERCIAL FINANCE ANALYST): New problem Discussed different treatment options Will start wellbutrin as pt also wants to try and lose weight Start wellbutrin 150 mg xl every day and rtc in [facility] 2-3 months to see how she is doing Dysthymia 12/30/2023 Assessment & Plan (12/30/2023 11:35 AM COMMERCIAL FINANCE ANALYST): Not at goal at this time Will start wellbturin Has never been on treatment before Resolved Problems Problem Noted Date Diagnosed Date Resolved Date Encounter for elective induction of labor 02/18/2023 12/30/2023 Post-term , 40-42 weeks of gestation 02/19/20 23 12/30/2023 Overview (02/19/2023): Added automatically from request for surgery [id number] Encounters Date Type Department Care Team Description 03/13/2025 Telephone [facility] Primary Care at [address] [place] [address] Juan Baugh MD 03/07/2025 Orders Only [facility] Primary Care at [address] [place] [address] Juan Baugh MD PCOS (polycystic ovarian syndrome) (Primary Dx) 03/02/2025 Telephone [facility] [address] [facility] 3rd Floor [address] [place] [address] Roland Finch from Last 3 Months Immunizations Immunization Administration Dates Next Due DTaP 06/22/2008, 5,01/29/2004,11/14,2003 DTaP / Hep B / IPV 01/29/2004,2003, 003 HPV, Quadrivalent 06/28/2015 HPV9 06/16/2017,01/13/2017 Hep A, Pediatric 08/07/2005 Hep A, Unspecified 05/21/2006 Hep B, Adolescent or Pediatric 4,2003,2003,06/26 HiB 03/31/2005, 4,2003,08/28 IPV 06/22/2008, 4,2003,08/28 Influenza, Quadrivalent, Spl it, Intramuscular 09/14/2023 Influenza, Quadrivalent, Spl it, Preservative Free, Intramuscular 12/30/2023,09/08/2016,09/12/2015 Influenza, Trivalent, Preser vative Free, Intramuscular 10/19/2024 Influenza, Unspecified 12/02/2010,10/31/2009 MMR 06/22/2008,06/27/2004 Meningococcal B, OMV (Bexsero) 06/28/2021 Meningococcal Conjugate (Menveo) 06/28/2015 Meningococcal MCV4P (Menactra) 06/28/2021 Pneumococcal Conjugate 7-Valent 03/31/20 05,01/29/2004,2003,08/28 Tdap 06/28/2015 Varicella 06/22/2008,06/27/2004 Social History Tobacco Use Types Packs/Day Years Used Date Smoking Tobacco: Never Smokeless Tobacco: Never Tobacco Cessation:Counseling Given: Not Answered Social Connection and Isolat ion Panel [NHANES] Answer Date Recorded In a typical week, how many times do you talk on the phone with family, friends, or neighbors? More than three times a week 02/18/2023 How often do you get togethe r with friends or relatives? More than three times a week 02/18/2023 How often do you attend chur ch or mu-ism services? Never 02/18/2023 Do you belong to any clubs o r organizations such as nondenominational groups, unions, fraternal or athletic groups, or school groups? No 02/18/2023 How often do you attend meet ings of the clubs or organizations you belong to? Never 02/18/2023 Are you , , di vorced, , never , or living with a partner? Living with partner 02/18/2023 AUDIT-C Answer Date Recorded Q1: How often do you have a drink containing alcohol? Never 02/18/2023 Q2: How many drinks containi ng alcohol do you have on a typical day when you are drinking? Patient does not drink Q3: How often do you have si x or more drinks on one occasion? Never 02/18/2023 Overall Financial Resource Strain (CARDIA) Answe r Date Recorded How hard is it for you to pa y for the very basics like food, housing, medical care, and heating? Not hard at all 02/18/2023 PHQ-2 Answer Date Recorded PHQ-2 Total Score (If total score is 3 or more points, staff should administer the PHQ-9) 0 01/03/2025 [facility] - Occupational Stress Questionnaire Answer Date Recorded Do you feel stress - tense, restless, nervous, or anxious, or unable to sleep at night because your mind is troubled all the time - these days? Not at all 02/18/2023 Exercise Vital Sign Answer Date Recorde d On average, how many days pe r week do you engage in moderate to strenuous exercise (like a brisk walk)? 3 days 02/18/2023 On average, how many minutes do you engage in exercise at this level? 30 min 02/18/2023 Hunger Vital Sign Answer Date Recorded Within the past 12 months, y ou worried that your food would run out before you got the money to buy more. Never true 12/22/19 25 Within the past 12 months, t he food you bought just didn't last and you didn't have money to get more. Never true 12/22/2024 PRAPARE - Transportation Answer Date Re corded In the past 12 months, has l ack of transportation kept you from medical appointments or from getting medications? No 01/29 In the past 12 months, has l ack of transportation kept you from meetings, work, or from getting things needed for daily living? No 02/18/2023 Housing Stability Vital Sign Answer Geovanny e Recorded In the last 12 months, was t here a time when you were not able to pay the mortgage or rent on time? No 02/18/2023 In the last 12 months, how many places have you lived? 1 02/18/2023 In the last 12 months, was t here a time when you did not have a steady place to sleep or slept in a usp (including now)? No 02/18/2023 Personal Safety Answer Date Recorded Have you ever been in or are you currently in a harmful physical or emotional relationship or is someone making you feel afraid or unsafe? Denies 03/08/2023 Comments No Sex and Gender Information Value Date Recorded Sex Assigned at Not on file Legal Sex Female 8:50 AM COMMERCIAL FINANCE ANALYST Gender Identity Not on file Sexual Orientation Not on file Obstetrics History Para Term AB IAB SAB Ectopic Multiple Livin g Live Births 1 1 1 0 1 1 Date Outcome GA Total Labor Labor/2nd/3rd Weight Sex Type Anes PTL Noreen A1 A5 Name Clin 2022 Term 40w 5d 16h 54m 14h 39m/2h 13m/0h 02m 3.475 kg (7 lb 10.6 oz) F C-Sec tion Epidur al N Livin g 1 5 JIM COSME,G Vinicio Del Valle EA, MD Complications:Failure to Pro mars in Second Stage,Rupture of Membranes > 18 hours, Intolerance Delivery Location:This Facil ity ([facility] L AND D PROCEDURE) Last Filed Vital Signs Vital Sign Reading Time Taken Comments Blood Pressure 102/64 01/03/2025 10:02 AM COMMERCIAL FINANCE ANALYST Pulse 97 01/03/2025 10:02 AM COMMERCIAL FINANCE ANALYST Temperature 36.3 C (97.4 F) 03/08/2023 1:34 AM CDT Respiratory Rate 16 01/03/2025 10:0 2 AM COMMERCIAL FINANCE ANALYST Oxygen Saturation 99% 01/03/2025 10: 02 AM COMMERCIAL FINANCE ANALYST Inhaled Oxygen Concentration - - Weight 84.2 kg (185 lb 11.2 oz) 025 10:02 AM COMMERCIAL FINANCE ANALYST Height 157.5 cm (5' 2.01 ) 01/03/2025 1 0:02 AM COMMERCIAL FINANCE ANALYST Body Mass Index 33.96 01/03/2025 10:02 AM COMMERCIAL FINANCE ANALYST Plan of Treatment Health Maintenance Due Date Last Done Comments Cervical Cancer Screening 2003 Chlamydia and Gonorrhea (GC/ CT) Screening 2003 Hepatitis C Screening 2003 Pneumococcal vaccine <65 (1 of 1 - PPSV23) 2009 03/31/2005, 01/29/2004, 2003, Additional history exists Meningococcal B Vaccine (2 o f 2 - Bexsero SCDM 2-dose series) 12/29/2021 06/28/2021 DTaP/Tdap/Td Vaccine (7 - Td or Tdap) 06/28/2025 06/28/2015, 06/22/2008, 03/31/2005, Additional history exists Depression Screening 01/03/2026 01/03/2025, 12/26/2024, 10/19/2024, Additional history exists Regular Well Visit/Exam 18-64 01/03/2026 01/03/2025, 12/30/2023 Hepatitis B Screening Completed 01/29/2004 , 01/29/2004, 2003, Additional history exists Varicella Vaccines Completed 06/22/2008, 06/27/2004 HPV Vaccines Completed 06/16/2017, 12/31, 06/28/2015 Meningococcal Vaccine Completed 06/28/2021, 015 Influenza Vaccine Completed 10/19/2024, , 09/14/2023, Additional history exists Insurance Advance Directives For more information, please contact: [phone] * Full Code (Latest Code Status on File) Date Activated Date Inactivated Comments 02/19/2023 9:18 PM 02/22/2023 8:44 PM * Full Code Date Activated Date Inactivated Comments 02/18/2023 6:12 AM 02/19/2023 9:18 PM Full CPR in case of cardiopulmonary arrest Care Teams Supervisor Travel Information Center Relationship Specialty Start Date End Date Juan Baugh MD [address] [facility] [address] [place] [address] PCP - General Family Medicine 12/30/23 Vinicio Lowery MD [address] [facility] [address] [place] [address] [employer] And Base Assembler Obstetrics and Gynecology 02/22/23
--- OUTSIDE RECORDS SUMMARY | 2025-04-19 00:19 | XMS_ITS | Referral Summary ---
Author Organization [address] Address [facility] [place] [address] Care Team Providers Care Passenger Booking Clerk Name Role Phone Vinicio Lowery MD Unavailable [phone] Juan Baugh MD Primary Care Provider Encounters Date Type Department Care Team Description 03/13/2025 Telephone [facility] Primary Care at [address] [place] [address] Juan Baugh MD 03/07/2025 Orders Only [facility] Primary Care at [address] [place] [address] Juan Baugh MD PCOS (polycystic ovarian syndrome) (Primary Dx) 03/02/2025 Telephone [facility] [address] [place] [address] Outpatient Health 3rd Floor [address] [place] [address] Roland Finch from Last 3 Months Allergies No known active allergies Medications albuterol [...] 01/03/2025 Assessment & Plan (01/03/2025 10:26 AM CORONER TRANSPORT TECHNICIAN): Lab Results Component Value Date CHOL 134 [...] 12/30/2023 Assessment & Plan (01/03/2025 10:13 AM CORONER TRANSPORT TECHNICIAN): Wt Readings from Last 3 Encounters: 01/03/25 [...] weight Assessment & Plan (10/19/2024 2:49 PM CORONER TRANSPORT TECHNICIAN): Wt Readings from Last 3 Encounters: 10/19/24 [...] bid Assessment & Plan (12/30/2023 11:26 AM CORONER TRANSPORT TECHNICIAN): Wt Readings from Last 3 Encounters: 12/30/23 [...] 12/30/2023 Assessment & Plan (01/03/2025 10:27 AM CORONER TRANSPORT TECHNICIAN): Discussed lifestyle modifications, diet and exercise. Routine blood work ordered/reviewed today. Yearly vision and dental examinations. Assessment & Plan (12/30/2023 11:35 AM CORONER TRANSPORT TECHNICIAN): Discussed lifestyle modifications, diet and exercise. Routine blood work ordered/reviewed today. Yearly vision and dental examinations. Anxiety 12/30/2023 Assessment & Plan (10/19/2024 2:51 PM CORONER TRANSPORT TECHNICIAN): Has been worsening due to her weight gain Assessment & Plan (05/18/2024 7:48 AM CDT): Significant improvemen Continue wellbutrin 150 mg xl Assessment & Plan (02/11/2024 11:45 AM CDT): Significant improvement since starting wellbutrin Continue wellbutrin 150 mg xl Assessment & Plan (12/30/2023 11:34 AM CORONER TRANSPORT TECHNICIAN): New problem Discussed different treatment options Will start wellbutrin as pt also wants to try and lose weight Start wellbutrin 150 mg xl every day and rtc in ab[place]ou 2-3 months to see how she is doing Dysthymia 12/30/2023 Assessment & Plan (12/30/2023 11:35 AM CORONER TRANSPORT TECHNICIAN): Not at goal at this time Will start wellbturin Has never been on treatment before Resolved Problems Problem Noted Date Diagnosed Date Resolved Date Encounter for elective induction of labor 02/18/2023 12/30/2023 Post-term , 40-42 weeks of gestation 02/19/20 23 12/30/2023 Overview (02/19/2023): Added automatically from request for surgery [id number] Immunizations Immunization Administration Dates Next Due DTaP [...] often do you attend chur ch or adventist services? Never 02/18/2023 Do you belong to any clubs o r organizations such as religion groups, unions, fraternal or athletic groups, or [...] staff should administer the PHQ-9) 0 01/03/2025 [facility] - Occupational [...] place to sleep or slept in a longterm (including now)? No 02/18/2023 Personal Safety Answer Date Recorded Have you ever been in or are you currently in a harmful physical or emotional relationship or is someone making you feel afraid or unsafe? Denies 03/08/2023 Comments No Sex and Gender Information Value Date Recorded Sex Assigned at Not on file Legal Sex Female 8:50 AM CORONER TRANSPORT TECHNICIAN Gender Identity Not on file Sexual Orientation Not on file Last Filed Vital Signs Vital Sign Reading Time Taken Comments Blood Pressure 102/64 01/03/2025 10:02 AM CORONER TRANSPORT TECHNICIAN Pulse 97 01/03/2025 10:02 AM CORONER TRANSPORT TECHNICIAN Temperature 36.3 C (97.4 F) 03/08/2023 1:34 AM CDT Respiratory Rate 16 01/03/2025 10:0 2 AM CORONER TRANSPORT TECHNICIAN Oxygen Saturation 99% 01/03/2025 10: 02 AM CORONER TRANSPORT TECHNICIAN Inhaled Oxygen Concentration - - Weight 84.2 kg (185 lb 11.2 oz) 02/04/2 025 10:02 AM CORONER TRANSPORT TECHNICIAN Height 157.5 cm (5' 2.01 ) 01/03/2025 1 0:02 AM CORONER TRANSPORT TECHNICIAN Body Mass Index 33.96 01/03/2025 10:02 AM CORONER TRANSPORT TECHNICIAN Plan of Treatment Not on file Insurance [facility] Advance Directives For more information, please contact: [phone] * Full Code (Latest Code Status on File) Date Activated Date Inactivated Comments 02/19/2023 9:18 PM 02/22/2023 8:44 PM * Full Code Date Activated Date Inactivated Comments 02/18/2023 6:12 AM 02/19/2023 9:18 PM Full CPR in case of cardiopulmonary arrest Care Teams Passenger Booking Clerk Relationship Specialty Start Date End Date Juan Baugh MD [address] [facility] [address] [place] [address] PCP - General Family Medicine 12/30/23 Vinicio Lowery MD [address] [facility] [address] [facility] [address] [place] [address] Nurse Clinician Obstetrics and Gynecology 02/22/23
[2025-04-19] MEDS: LACTATED RINGERS 1,000 ML 30 ML IV CONT ×2 (08:30→11:10)
[2025-04-19] MEDS: ACETAMINOPHEN 500 MG TABLET 1000 MG PO (08:30)
--- NOTE | 2025-04-19 08:57 | PM.IMHP ---
H&P: HPI History of Present Illness Date/Time: 04/19/25 08:57 Chief Complaint: Pelvic pain Narrative: This patient is a 19-year-old female with longstanding pelvic pain. We agreed to perform diagnostic laparoscopy. She understands the risks, benefits, and alternatives. She has completed informed consent process is ready to proceed. The patient understands the details of the procedure. The procedure has been explained in detail. She understands the risks. She understands that injuries may occur that result in hospitalization, more surgery, and severe illness. She understands risk of hemorrhage and infection. She denies any chest pain or shortness of breath. She denies any nausea, vomiting, fever, chills. Review of Systems Review of Systems: All systems reviewed & are unremarkable except as noted in HPI and below Constitutional: Constitutional: Denies chills, Denies fatigue, Denies fever(s) and Denies weakness Eyes: Eyes: Denies blurry vision, Denies change in vision, Denies loss of peripheral vision, Denies loss of vision, Denies other visual disturbances and Denies eye pain ENT: Denies vertigo, Denies dizziness, Denies hearing loss, Denies mouth pain, Denies nasal obstruction, Denies neck mass and Denies neck pain Cardiovascular: Cardiovascular: Denies chest pain, Denies diaphoresis, Denies syncope, Denies leg edema and Denies dyspnea Respiratory: Respiratory: Denies chest congestion, Denies cough, Denies hemoptysis, Denies dyspnea and Denies wheezing Gastrointestinal: Gastrointestinal: Denies abdominal pain, Denies constipation, Denies diarrhea, Denies nausea and Denies vomiting Genitourinary: Genitourinary: Denies hematuria, Denies change in libido, Denies nocturia, Denies genital lesions, Denies flank pain and Denies urinary urgency Musculoskeletal: Musculoskeletal: Denies abnormal gait, Denies back pain, Denies myalgias, Denies arthralgias, Denies joint swelling, Denies muscle weakness and Denies neck pain Integumentary/Breasts: Skin/Breast: Denies swelling, Denies breast pain, Denies breast mass, Denies dry skin, Denies nipple discharge, Denies unusual bruising and Denies jaundice Neurologic: Denies Neuro-related abnormal movements, Denies Abnormal speech present, Denies abnormal gait, Denies behavioral changes, Denies confusion, Denies vertigo, Denies dizziness, Denies syncope, Denies loss of vision, Denies memory loss, Denies convulsions and Denies weakness Psychiatric: Psychiatric: Denies abnormal sleep pattern, Denies behavioral changes, Denies change in libido, Denies confusion, Denies depression, Denies anhedonia and Denies memory loss Endocrine: Endocrine: Reports no additional endocrine complaints, Denies change in libido and Denies fatigue Hematologic/Lymphatic: Hematologic/Lymphatic: Reports no additional hematologic/lymphatic complaints Allergic/Immunologic: Allergic/Immunologic: Reports no additional allergic/immunologic complaints and Denies wheezing [facility] Past Medical History Medical History (Updated 04/19/25 @ 08:58 by Deshawn Reynoso MD) Hyperthyroidism Anxiety Asthma Seasonal affective disorder Obesity GERD (gastroesophageal reflux disease) No significant past medical history Surgical History Surgical History No significant past surgical history Family History Family History Mother Family history non-contributory Social History Social History Smoking status: Never smoker Alcohol intake: current Substance use: never Living arrangements: with family Occupation/Education: unemployed Gender identity (if verbalized by the patient): Female Spiritual care concerns: No Meds Home Medications and Allergies Home Medications Medication Instructions Recorded Confirmed Type albuterol sulfate 90 mcg/actuation See Rx Instructions .Route 10/05/24 04/11/25 History aerosol inhaler .COMPLEX PRN sob Allergies Allergy/AdvReac Type Severity Reaction Status Date / Time No Known Allergies Allergy Verified 04/11/25 10:05 Exam Const: General: cooperative, healthy appearing, comfortable and no acute distress Orientation/consciousness: oriented to person, oriented to place and oriented to time HENMT: Head: normal to inspection Ears: external ears normal Face/Nose/Sinus: Normal external nose present and normal facial exam Face and sinus: normal facial exam Eyes: General: appearance normal, both eyes and all related structures Neck: Neck: normal visual inspection, trachea midline and supple Resp: Auscultation: clear to auscultation bilaterally, no crackles, no rales, no rhonchi and no wheezes Cardio: Rate: regular rate Rhythm: regular rhythm Heart sounds: no click, no murmurs and no rubs GI: GI Palp: No abdominal tenderness, No Soft to palpation, No Tenderness to palpation present (GI) and No Palpable mass present Auscultation: normal bowel sounds Skin: General skin exam: normal color and no rashes or lesions noted Neuro: General: oriented to person, oriented to place and oriented to time Extrem: General: normal to inspection, no joint enlargement, no clubbing, cyanosis or edema, no pedal edema and no calf tenderness Psych: Appearance: grossly normal Mental Status: mental status grossly normal Speech and movement: Normal speech and movement present Assessment and Plan Assessment and plan (1) Pelvic pain: Code(s): R10.2 - Pelvic and perineal pain Status: Acute Plan This patient is a 19-year-old female with longstanding pelvic pain. We agreed to perform diagnostic laparoscopy. She understands the risks, benefits, and alternatives. She has completed informed consent process is ready to proceed.
--- NOTE | 2025-04-19 08:59 | WPDHPUPDATE1 ---
History and Physical Update Update Date/Time: 04/19/25 08:59 History and Physical has been reviewed, including an updated exam of the patient. There are NO changes in the patient's condition. Risks, benefits, and alternatives have been discussed and questions answered. Patient agrees to proceed with procedure.
[2025-04-19] MEDS: KETOROLAC 15 MG/ML VIAL (*BKC) IV PUSH (09:00)
--- NOTE | 2025-04-19 09:06 | WPDANESEPPF ---
Anes - Initial Pre Proc Eval Procedure: Operation Date: 04/19/25 09:30 Proposed Procedures p Diagnostic Laparoscopy - Deshawn Reynoso MD Date/Time: 04/19/25 09:06 Surgeon: Deshawn Reynoso MD Pre Op Diagnosis: pelvic pain Patient Data Age: 19 Gender: F Height: 1.57 m Weight: 89.5 kg Allergies Allergy/AdvReac Type Severity Reaction Status Date / Time No Known Allergies Allergy Verified 04/11/25 10:05 Home Medications Medication Instructions Recorded Confirmed Type albuterol sulfate 90 mcg/actuation See Rx Instructions .Route 10/05/24 04/11/25 History aerosol inhaler .COMPLEX PRN sob Patient hx anesthesia problems: none Family hx anesthesia problems: none Results Review: All pre-operative results and documents have been reviewed as part of the pre-operative evaluation. [facility] Past Medical History Medical History (Updated 04/19/25 @ 08:58 by Deshawn Reynoso MD) Hyperthyroidism Anxiety Asthma Seasonal affective disorder Obesity GERD (gastroesophageal reflux disease) No significant past medical history Surgical History Surgical History No significant past surgical history Family History Family History Mother Family history non-contributory Social History Social History Smoking status: Never smoker Alcohol intake: current Substance use: never Living arrangements: with family Occupation/Education: unemployed Gender identity (if verbalized by the patient): Female Spiritual care concerns: No Anes - Eval Final PreProcedure Day of Procedure 04/19/25 09:06 Patient weight: obese Heart: regular rate and rhythm Lungs: clear to auscultation Airway: Mallampati scale class II Neurological: alert and oriented Last oral intake: >/= 8 hours ASA classification: II Emergent: no Anesthetic plan: proceed Anesthesia type and monitoring: general ETT and standard monitoring Results Review: All pre-operative results and documents have been reviewed as part of the pre-operative evaluation. Informed Consent: The patient's anesthetic plan and its attendant risks and benefits were discussed with the patient/family/POA. Questions were solicited and answers provided to the satisfaction of the patient/family/POA.
[2025-04-19 09:16] LABS: BEDSIDEPREGUCG Negative (Negative)
[2025-04-19] MEDS: HEMOSTATIC MATRIX (SURGIFLO with THROMBIN) KIT 1 KIT XX (10:54)
--- NOTE | 2025-04-19 11:30 | W.PM.PROC2 ---
Procedure Note - Detailed Date of Procedure 04/19/25 Pre-op Diagnosis pelvic pain Post-op Diagnosis Same (Endometriosis, adhesion) Procedure Performed Diagnostic laparoscopy, adhesiolysis-30 minutes, resection of endometriosis Surgeon Deshawn Reynoso MD Anesthesia General Indications Pelvic pain Findings Inflammation/endometriosis in the bilateral pelvic sidewalls, vascularity. Adhesions between the uterus and the anterior pelvis. Description of Procedure The patient was taken to the operating room. She was prepped and draped in the dorsal lithotomy position after induction general anesthesia. A 5 mm incision was made with a scalpel on the abdominal skin in the left upper quadrant of the abdomen. A 5 mm trocar was inserted into the intra-abdominal cavity under direct visualization the scope. In the same fashion a 5 mm left lower quadrant trocar was inserted and a 5 mm infraumbilical trocar was inserted. 30 minutes of adhesiolysis was performed using sharp and blunt dissection and cautery. This was performed between the uterus and the anterior pelvis. Resection of endometriosis was performed. Bilaterally the pelvic sidewall peritoneum was removed. The ureters were dissected intact. To perform resection of an endometriosis the ovaries were suspended using a [place] needle/suture Passer to place a suture through the abdominal wall through the ovary to suspended towards the anterior abdominal wall. DAGOBERTO manipulator was also placed. This was done using a speculum and tenaculum. The pelvis was irrigated. The pneumoperitoneum was reduced. The trocars were removed. Skin was closed with subcuticular 4 micro. The patient's incisions were covered with Dermabond. She was taken recovery room in stable condition. Sponge lap and needle counts were correct x2. Complications No immediate complications Condition Stable Disposition Same day
[2025-04-19] MEDS: fentaNYL CITRATE INJ (*CRX) 100 MCG/2 ML VIAL 25 MCG IV PUSH ×6 (11:41→12:46)
[2025-04-19] MEDS: ONDANSETRON INJ 4 MG/2 ML VIAL IV PUSH (12:56)
[2025-04-19] MEDS: oxyCODONE HCL (*CRX) 5 MG TAB IR PO (13:20)
== END 2025-04-19 13:48 | disposition home or self-care (01) ==
PROVIDERS: Visit Provider Obstetrics & Gynecology
PROC: (CPT 49320; principal; 2025-04-19 09:30)
DX: K65.9 Peritonitis, unspecified (principal); N73.6 Female pelvic peritoneal adhesions (postinfective); R10.2 Pelvic and perineal pain; E66.9 Obesity, unspecified; Z68.37 Body mass index [BMI] 37.0-37.9, adult
CPT/HCPCS: 58662; 88305; A9270; J1100; J1885; J2003; J2250; J2405; J2704; J3010; J7120